=== PATIENT | male | born 1990 | race Caucasian/White ===

== ENCOUNTER 2019-08-24 08:55 | Inpatient (IN) | payer OTHER ==
[~2019-08-24] VITALS: Ht 177.8 cm; Wt 124.7 kg
[2019-08-24 08:57] VITALS: BP 195/111
[2019-08-24 09:34] LABS: ABSOLUTE BASOPHILS 0.1 thou/uL (0.0-0.2); ABSOLUTE EOSINOPHILS 0.2 thou/uL (0.0-0.7); ABSOLUTE LYMPHOCYTES 1.1 thou/uL (0.8-5.3); ABSOLUTE MONOCYTES 1.3 thou/uL (0.0-1.2); ABSOLUTE NEUTROPHILS 11.8 thou/uL (1.6-8.1); BASOPHILS 0.3 %; EOSINOPHILS 1.6 %; HEMATOCRIT 45.7 % (42.0-52.0); HEMOGLOBIN 15.8 gm/dL (14.0-18.0); LYMPHOCYTES 7.4 %; MCH 29.9 pg (26.0-34.0); MCHC 34.6 g/dL (28.0-37.0); MCV 86.6 fL (80.0-100.0); MONOCYTES 9.1 %; MPV 9.8 fl. (7.2-11.1); NUCLEATED RBCS 0 /100WBC; PLATELET COUNT* 263 thou/uL (150-400); POLYS 81.6 %; RBC 5.28 mil/uL (4.50-6.00); RDW-CV 13.8 % (10.5-14.5); WBC 14.5 thou/uL (4.0-11.0)
[2019-08-24 09:42] LABS: CALCIUM 9.2 mg/dL (8.5-10.1); CREATININE 0.9 mg/dL (0.6-1.3); POTASSIUM 3.6 mmol/L (3.5-5.1)
[2019-08-24 09:46] LABS: ALBUMIN 3.6 g/dL (3.4-5.0); TOTAL BILIRUBIN 2.5 mg/dL (<0.1-1.0); TOTAL PROTEIN 7.8 g/dL (6.4-8.2)
[2019-08-24 09:52] LABS: PROTIME 10.1 Seconds (9.20-11.50)
--- NOTE | 2019-08-24 10:43 | NUR ---
MARICA NOTIFIED UPON PT RETURN FROM CT. PT CONNECTED TO MONITOR AND O2
[2019-08-24 11:25] LABS: AMYLASE 822 U/L (25-115)
[2019-08-24 11:33] LABS: URINE BLOOD NEGATIVE (Negative); URINE CLARITY CLEAR; URINE COLOR YELLOW; URINE GLUCOSE-RANDOM NEGATIVE (Negative); URINE KETONES NEGATIVE (Negative); URINE LEUKOCYTES-REFLEX NEGATIVE (Negative); URINE NITRITE-REFLEX NEGATIVE (Negative); URINE PROTEIN NEGATIVE (Negative); URINE UROBILINOGEN 0.2 E.U./dl (0.2-1.0)
[2019-08-24 11:34] LABS: LIPASE 14097 U/L (73-393)
[2019-08-24 11:35] LABS: ICTOTEST (BILI CONFIRMATORY) Positive (Negative); URINE BILIRUBIN 1+ (Negative)
[2019-08-24 11:41] LABS: AMP/METHAMP POSITIVE (Negative); BARBITURATES Negative (Negative); BENZODIAZEPINES Negative (Negative); COCAINE Negative (Negative); METHADONE Negative (Negative); OPIATES POSITIVE (Negative); PCP Negative (Negative); THC Negative (Negative)
--- NOTE | 2019-08-24 12:04 | NUR ---
REPORT GIVEN TO KULDIP VAZQUEZ. KULDIP VAZQUEZ TO ASSUME PT CARE INPATIENT NURSE.
[2019-08-24 12:12] VITALS: BP 145/88
[2019-08-24 16:00] VITALS: BP 146/87
--- NOTE | 2019-08-24 16:16 | EKG ---
[place] [address] ELECTROCARDIOGRAM REPORT Name: TRUJILLORYAN II Room: [address] ADM IN M.R.#: [id number] Admission: 08/24/19 Attend Phys: Maximo Real Discharge: Date of : 89 Report #: [id number] THIS REPORT FOR: //name// 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
--- NOTE | 2019-08-24 19:50 | NUR ---
I ASSUMED CARE OF THE PATIENT AN ADMISSION AT 1220. HE IS ALERT AND ORIENTED X4 AND IS UP AD OSIEL. BED IS IN THE LOW LOCKED POSITION AND CALL LIGHT IS IN REACH. PATIENT NEEDS ARE MET AND PAIN IS MANAGED WITH PRN MEDS. HOURLY ROUNDING IS COMPLETED WELL ADMISSION. PATIENT IS INTERESTED IN CASE MANAGAMENT HELPING TO SET UP A DPOA. WILL CONTINUE TO MONITOR.
[2019-08-24 21:00] VITALS: BP 141/60
[2019-08-25 02:10] LABS: HEPATITIS B SURFACE AG Negative (Negative)
[2019-08-25 04:06] LABS: ABSOLUTE EOSINOPHILS 0.3 thou/uL (0.0-0.7); ABSOLUTE LYMPHOCYTES 1.1 thou/uL (0.8-5.3); ABSOLUTE MONOCYTES 0.9 thou/uL (0.0-1.2); ABSOLUTE NEUTROPHILS 7.3 thou/uL (1.6-8.1); BASOPHILS 0.1 %; EOSINOPHILS 3.3 %; HEMATOCRIT 41.7 % (42.0-52.0); HEMOGLOBIN 14.2 gm/dL (14.0-18.0); LYMPHOCYTES 11.5 %; MCHC 34.1 g/dL (28.0-37.0); MCV 88.1 fL (80.0-100.0); MONOCYTES 9.4 %; MPV 10.7 fl. (7.2-11.1); NUCLEATED RBCS 0 /100WBC; PLATELET COUNT* 222 thou/uL (150-400); POLYS 75.7 %; RBC 4.74 mil/uL (4.50-6.00); RDW-CV 13.7 % (10.5-14.5); WBC 9.7 thou/uL (4.0-11.0)
[2019-08-25 04:25] LABS: DIRECT BILIRUBIN 3.7 mg/dL (<0.1-0.3); MAGNESIUM 2.1 mg/dL (1.8-2.4); PHOSPHORUS* 3.4 mg/dL (2.5-4.9); POTASSIUM 3.7 mmol/L (3.5-5.1)
[2019-08-25 04:46] LABS: ALBUMIN 2.8 g/dL (3.4-5.0); CALCIUM 8.1 mg/dL (8.5-10.1); CREATININE 0.8 mg/dL (0.6-1.3); TOTAL BILIRUBIN 4.3 mg/dL (<0.1-1.0); TOTAL PROTEIN 5.6 g/dL (6.4-8.2)
--- NOTE | 2019-08-25 05:44 | NUR ---
PATIENT SLEPT MOST OF THE NIGHT. IV FLUIDS CONTINUE TO INFUSE PER ORDER. PATIENT WAS GIVEN PAIN MEDICINE ONCE THIS SHIFT. PATIENT REMAINS NPO. WILL CONTINUE TO MONITOR.
[2019-08-25 07:52] VITALS: BP 147/93
--- NOTE | 2019-08-25 14:42 | NUR ---
SW met with pt and pt parents to complete initial assessment, introduce self, and SW role. Pt alert, oriented, pleasant. Pt plans to be able to dc home with parents' support and pt wants to be able to recover from drug addiction, find job and "turn life around". SW provide pt with community resource list and discussed importance of support in pt recovery as well. Pt does not anticipate any dc needs at this time. SW to continue to follow.
[2019-08-25 15:54] VITALS: BP 129/71
--- NOTE | 2019-08-25 16:50 | NUR ---
ASSESSMENT COMPLETE. PT IS ALERT AND ORIENTED X4. PT GIVEN PRN PAIN MEDICATION NEEDED. PT HAS SURGERY TOMORROW, CLEAR LIQUIDS UNTIL MIDNIGHT THEN NPO. PT TOLERATING WITHOUT N/V OR WORSENING PAIN. PT IS UP AD OSIEL. PT HAD SHOWER THIS AFTERNOON. NEW IV PLACED IN LEFT FA, NS AT 150. IV ABX GIVEN SCHEDULED. PT HAS NO OTHER CONCERNS AT THIS TIME. SEE ASSESSMENT AND VITALS FOR OTHER DETAILS. CALL LIGHT WITHIN REACH, WILL CONTINUE PLAN OF CARE
[2019-08-25 20:02] VITALS: BP 163/96
--- NOTE | 2019-08-26 04:32 | NUR ---
ASSUMED PATIENT CARE AT 1900. PATIENT ALERT AND ORIENTED TIMES FOUR. VERBALIZED UNDERSTANDING OF NPO STATUS AT 0000 AND THAT HE WAS GOING TO HAVE SURGERY SOMETIME ON 08/26/19. COMPLAINTS OF PAIN, CONTROLLED WITH IV PAIN MEDICATION. NO QUESTIONS OR CONCERNS AT THIS TIME. RN ASSESSMNET AND HOURLY ROUNDING COMPLETED CHARTED
[2019-08-26 04:39] LABS: HEMATOCRIT 38.2 % (42.0-52.0); MCH 29.9 pg (26.0-34.0); MCHC 34.2 g/dL (28.0-37.0); MCV 87.5 fL (80.0-100.0); MPV 9.5 fl. (7.2-11.1); RBC 4.36 mil/uL (4.50-6.00); RDW-CV 13.9 % (10.5-14.5)
[2019-08-26 05:06] LABS: ALBUMIN 2.4 g/dL (3.4-5.0); CALCIUM 8.2 mg/dL (8.5-10.1); CREATININE 0.7 mg/dL (0.6-1.3); PHOSPHORUS* 2.5 mg/dL (2.5-4.9); POTASSIUM 3.8 mmol/L (3.5-5.1); TOTAL BILIRUBIN 1.9 mg/dL (<0.1-1.0); TOTAL PROTEIN 5.5 g/dL (6.4-8.2)
[2019-08-26 07:40] VITALS: BP 128/68
[2019-08-26 08:28] VITALS: BP 128/68
[2019-08-26 09:23] LABS: CHOLESTEROL 156 mg/dL (<200); HDL CHOLESTEROL 12 mg/dL (>40); LDL CHOLESTEROL 129 mg/dL (<100); TRIGLYCERIDE 76 mg/dL (<150); VLDL 15 mg/dL (<40)
[2019-08-26 09:24] LABS: SERUM ASSESSMENT Clear
[2019-08-26 13:50] VITALS: BP 173/81
--- NOTE | 2019-08-26 13:57 | OP ---
[address] [address] OPERATIVE REPORT Name: RONNIERYANMarco MIN II Room: [address] IN ..#: [id number] Admission: 08/24/19 Attend Phys: Maximo Real Discharge: Date of : 89 Report #: [id number] THIS REPORT FOR: //name// CC: RIVERA physician/PCP Maximo Hillman DATE OF SERVICE: 08/26/2019 PREOPERATIVE DIAGNOSES: Acute cholecystitis, cholelithiasis, and elevated liver enzymes. POSTOPERATIVE DIAGNOSES: Acute cholecystitis, cholelithiasis, and elevated liver enzymes. FINDINGS: Hugely distended and thick walled gallbladder with large stones. IOC was negative. SURGEON: Gretchen Myers DO. CO-SURGEON: Pee Wright, PGY5. BLASTING CLAY MINER: MS Leigh3. PROCEDURE PERFORMED: Laparoscopic cholecystectomy with intraoperative cholangiogram and surgeon interpretation of images. ANESTHESIA: General endotracheal and local. ESTIMATED BLOOD LOSS: 30 mL. DRAINS: None. SPECIMENS: Gallbladder. COMPLICATIONS: None. CONDITION: Stable. DISPOSITION: PACU to the floor. HISTORY OF PRESENT ILLNESS: The patient is a 28-year-old male who presented to the ER with complaint of abdominal pain. He was found to have an elevated white count and elevated liver enzymes and ultrasound was positive for acute cholecystitis with cholelithiasis. He was admitted to the floor with IV antibiotics and made n.p.o. MRCP was completed with no findings of any obstruction in the common bile duct. His LFTs did improve somewhat. He was [facility] [address] [place] [address] OPERATIVE REPORT Name: RYAN TRUJILLO JIMENEZ Room: [address] IN [facility].#: [id number] Admission: 08/24/19 Attend Phys: Maximo Real Discharge: Date of : 89 Report #: [id number] then consented for laparoscopic cholecystectomy with intraoperative cholangiogram. Risks discussed included bleeding; infection; pain; scar formation; injury to bowel, liver, and bile duct; hernia at the incision sites; need for an open procedure; and risks of general anesthesia. The patient understood these risks and elected to proceed. DESCRIPTION OF PROCEDURE: The patient was brought to the operating room. He was laid supine on the operating room table. SCDs were placed on bilateral lower extremities. The patient was already on Zosyn in the perioperative period. General endotracheal anesthesia was induced by Anesthesia without difficulty. Abdomen was prepped and draped in standard sterile fashion. Timeout was performed to verify the patient and procedure. 10 mL of 0.5% Marcaine were injected in the infraumbilical area. Incision was made with #11 blade. Cautery was used for hemostasis. S retractors were used to visualize the fascia. Fascia was grasped and elevated between 2 Kochers. Fascia was incised using cautery. Peritoneum was bluntly entered using a Ena clamp. Finger was introduced into the abdomen to assure that there were no rosy-incisional adhesions and none were identified. Two stitches of 0 Vicryl placed on the fascia. Perry trocar was introduced and secured with 0 Vicryl stitches. Abdomen was insufflated. The patient was placed head up and tilted left side down. Camera was introduced and a brief anterior abdominal exploration was undertaken with findings of a hugely distended gallbladder which was completely unrolled in adhesions. Three 5 mm trocars were introduced, 1 in the subxiphoid area and 2 in the right upper quadrant. The omental adhesions were gently teased down using the suction cooperative manager until the entirety of the gallbladder could be visualized. Gallbladder was hugely distended. Aspiration needle was introduced, but no bile was able to be aspirated. Cautery was then used to incise the peritoneum overlying the triangle of Calot. Cystic duct was then identified. It was circumferentially dissected free using a [place] dissector. Artery was identified just posterior. It was also circumferentially dissected free using a [place] dissector. Anaya clamp was then brought onto the field and was placed across the neck of the gallbladder. Self-penetrating catheter was introduced without difficulty. We had excellent flush and pulled bile through the cystic duct. The patient was returned to supine. C-arm was brought onto the field and cholangiogram was performed for 40 seconds with excellent flow of contrast into the cystic duct, bile duct, and hepatic radicals. Contrast was seen freely and to promptly flow into the duodenum. There was no sign of any stones or obstruction. Anaya clamp and catheter were then removed. Cystic duct was then triply clipped and ligated. Cystic Artery was doubly clipped and ligated. Gallbladder was then removed from the liver bed with some difficulty due to an acute inflammatory plane. One posterior artery was identified and was clipped. Gallbladder was then placed within an EndoCatch bag. Liver bed was inspected. Hemostasis was assured. Right upper quadrant was copiously irrigated until clear. Clips were inspected. They appeared to be intact. There was no bleeding or leakage noted from the area of the clips. Trocars were then removed under direct visualization. There was no bleeding [address] [address] OPERATIVE REPORT Name: RYAN TRUJILLO II Room: [address] IN [facility]#: [id number] Admission: 08/24/19 Attend Phys: Maximo azul [place] Discharge: Date of : 89 Report #: [id number] noted from the peritoneum. Abdomen was then completely desufflated. Perry trocar was removed, and EndoCatch bag was removed after extending the fascial incision due to the excessive size of the gallbladder. Specimen was handed off for permanent pathology. Kochers were placed on the fascia of our infraumbilical port. Previously placed 0 Vicryl stitches were removed and a #0 Vicryl stitch was placed in [id number]-rj-[id number] fashion with excellent approximation of the fascia. Additional 10 mL of 0.5% Marcaine were injected in the fascia. This wound was closed in a layered fashion using deep and superficial stitches of 3-0 Vicryl in inverted interrupted fashion. All skin wounds were closed with 4-0 Monocryl. A total of 30 mL of 0.5% Marcaine were used to anesthetize the wounds. Wounds were then cleansed and covered with Mastisol, Steri-Strips, 4 x 4's, and Tegaderm. The patient was then allowed to awake from anesthesia, was extubated, and transported to the recovery room with no further difficulties. Counts were correct x 2 at the conclusion of the case. <ELECTRONICALLY SIGNED> By: Gretchen Myers, 08/26/19 1357 1241 [id number] Myers DO /aneta
--- NOTE | 2019-08-26 17:21 | NUR ---
PATIENT HAD LAP CHOLEY THIS AM WITH DR. LOPEZ. PATIENT C/O ABD PAIN AFTER SURGERY. PRN OXY IR AND MORPHINE GIVEN ORDERED FOR PAIN. IVF AND SCHED ABX INFUSED ORDERED. PATIENT SITTING UP ON SIDE OF BED. VOIDING LARGE AMOUNTS OF URINE PER URINAL. FAMILY AT BEDSIDE. OK PER DR. LOPEZ TO DC THIS EVENING, PATIENT STATED HE WANTED TO STAY ANOTHER NIGHT. DRESSINGS TO ABD X 4 INTACT.
[2019-08-26 19:00] VITALS: BP 171/90
[2019-08-26 19:30] VITALS: BP 189/93
[2019-08-27] VITALS: BP 178/85
[2019-08-27 03:46] VITALS: BP 163/94
[2019-08-27 04:34] LABS: HEMATOCRIT 37.4 % (42.0-52.0); HEMOGLOBIN 12.6 gm/dL (14.0-18.0); MCH 29.3 pg (26.0-34.0); MCHC 33.7 g/dL (28.0-37.0); MCV 87.1 fL (80.0-100.0); MPV 9.4 fl. (7.2-11.1); RBC 4.3 mil/uL (4.50-6.00); RDW-CV 13.9 % (10.5-14.5); WBC 15.3 thou/uL (4.0-11.0)
[2019-08-27 04:48] LABS: ALBUMIN 2.6 g/dL (3.4-5.0); CALCIUM 8.2 mg/dL (8.5-10.1); CREATININE 0.7 mg/dL (0.6-1.3); POTASSIUM 3.7 mmol/L (3.5-5.1); TOTAL BILIRUBIN 1.1 mg/dL (<0.1-1.0); TOTAL PROTEIN 5.9 g/dL (6.4-8.2)
--- NOTE | 2019-08-27 05:58 | NUR ---
PT ALERT AND ORIENTED. BP HIGH. HYDRALAZINE GIVEN TWICE THIS SHIFT. ASSESSMENT DOCUMENTED. PAIN MEDS GIVEN MULTIPLE TIMES THIS SHIFT. MORPHINE GIVEN ONLY ONCE. THE REST WAS PO PAIN MEDS. 4 LAP SITES COVERED WITH TEGADERM C/D/I. PARENTS AT BEDSIDE THROUGH SHIFT. CAPNO IN PLACE. IV ABX INFUSED ORDERED. LFA IV WITH NS @ 150. PT DOES NOT EERCISE PATIENCE WHEN HE CALLS OUT. HE CALLS OUT MULTIPLE TIMES IN LESS THAN 5 MINS FOR THE SAME REASON. ANTICIPATED DC TO HOME TODAY. CALL LIGHT WITHIN REACH. HOURLY ROUNDINGS MADE. FALL PRECAUTION IN PLACE. WILL CONTINUE TO MONITOR.
[2019-08-27 08:00] VITALS: BP 159/87
[2019-08-27] MEDS ORDERED: HYDROCHLOROTHIA25 M1 PO (09:15)
[2019-08-27] MEDS ORDERED: COLACE 100 MG100 MG PO (09:15)
[2019-08-27] MEDS ORDERED: OXYCODONE HCL 55 MG PO (09:15)
[2019-08-27 10:21] VITALS: BP 159/87
[2019-08-27 10:30] VITALS: BP 159/87
--- NOTE | 2019-08-27 11:08 | NUR ---
ASSUMED PT CARE AT 0800. ASSESSMENT COMPLETED CHARTED. ABLE TO MAKE NEEDS KNOWN. UP AD OSIEL IN ROOM. PAIN NOTED IN ABDOMEN OF 06/07, COULDNT GIVE PAIN MEDICATION YET. PT TOOK SHOWER WHICH HELPED. DISCHARGE APPROVED FROM DOCTORS AND DISCHARGE PAPERWORK GIVEN TO PATIENT, SCRIPTS AND INFO GIVEN, IV FLUIDS STOPPED AND IV REMOVED. PATIENT WALKED TO CAR AT 1105 WITH NURSING STAFF. TOOK ALL BELONGINGS WITH HIM. NO QUESTIONS, COMMENTS, OR CONSERNS NOTED.
--- NOTE | 2019-08-30 14:06 | PATH ---
[address] [address] PATHOLOGY RPT PROCEDURE Name: COLE DIOP MECHELLE GAONA Room: [address] IN ..#: [id number] Admission: 08/24/19 Date of : [birth year] Discharge: 08/27/19 Report #: [id number] Path Case #: [id number] [facility] Accession Number: [id number] . 01 Material submitted: . gallbladder - GALLBLADDER . 01 Clinical history: . Acute cholecystitis, cholethithiasis, and elevated liver enzynes . 02 Diagnosis: Gallbladder: - Chronic and severe acute, ulcerative and hemorrhagic cholecystitis with associated epithelial atypia, mural fibrosis and serositis, cholelithiasis and benign and hyperplastic sentinel lymph node. (PA:brittany; 08/29/2019) MBMika 08/29/2019 1219 Local . 02 Electronically signed: . Ramírez Lozano MD, Pathologist NPI- [id number] . 01 Gross description: . Received in an unidentified cloudy brown fluid labeled "Cole Diop II, gallbladder," is an intact gallbladder measuring 8.2 x 4.1 x 3.3 cm in greatest dimensions. The serosal surface is smooth to shaggy and parekh-rivera to extensively hemorrhagic in appearance, partially covered in light rivera possible adhesions. Opening the specimen reveals a shaggy, dark brown to extensively hemorrhagic mucosa measuring 0.1 cm in thickness, with a gallbladder wall thickness of up to 0.9 cm. Sectioning near the infundibulum reveals a rivera-brown possible lymph node measuring 1.5 x 0.8 x 0.6 cm. A segment of loosely attached, light green to hemorrhagic possible mucosa is noted on the mucosal aspect, measuring 3.3 x 1.4 x 1.0 cm. No discrete polyps or nodules are noted grossly. A single calculus is present within the specimen that is dark brown-black and granular in appearance, measuring 1.4 cm maximum dimension. Environmental Compliance Engineer sections of the infundibulum, body and fundus are submitted in cassettes A1 and A2, to representatively include the possible partially detached mucosa. The possible lymph node is serially sectioned and submitted entirely in cassette A3. (DAC; 08/28/2019) XDC/XDC 08/29/2019 121 Local . 02 Pathologist provided ICD-10: K80.12 . 02 CPT . 114[address] [place] [address] PATHOLOGY RPT PROCEDURE Name: COLE DIOP II Room: [address] IN [facility].#: [id number] Admission: 08/24/19 Date of : 89 Discharge: 08/27/19 Report #: [id number] Path Case #: [id number] Specimen Comment: A courtesy copy of this report has been sent to Specimen Comment: [phone], . Specimen Comment: Report sent to / DR THOMAS Specimen Comment: Report sent to Specimen Comment: A duplicate report has been generated due to demographic updates. Performed at: [address] [facility] [address], [place], [place] [id number] MD Mike Alanis MD Phone: [phone] Performed at: [address] [facility] [address] [place], [place] [id number] MD Ramírez Lozano MD Phone: [phone]
== END 2019-08-27 11:05 | disposition home or self-care (01) | DRG 853 ==
LOC: M.ERS 08:55 → M.3W 11:22 → M.TBA-ER 11:22 → M.3W 12:26 → M.ORTHSURG 08-26 16:56
PROVIDERS: Personal Emergency Response Attendant; Surgery; ADMIT Family Medicine
PROC: 0FT44ZZ Resection of Gallbladder, Percutaneous Endoscopic Approach (ICD-10-PCS; principal; 2019-08-26)
PROC: BF131ZZ Fluoroscopy of Gallbladder and Bile Ducts using Low Osmolar Contrast (ICD-10-PCS; 2019-08-26)
DX: A41.9 Sepsis, unspecified organism (principal); K85.90 Acute pancreatitis without necrosis or infection, unspecified; K80.00 Calculus of gallbladder with acute cholecystitis without obstruction; E87.1 Hypo-osmolality and hyponatremia; E66.01 Morbid (severe) obesity due to excess calories; I10 Essential (primary) hypertension; F15.10 Other stimulant abuse, uncomplicated; F17.210 Nicotine dependence, cigarettes, uncomplicated; K75.9 Inflammatory liver disease, unspecified; R73.9 Hyperglycemia, unspecified; R74.0 Nonspecific elevation of levels of transaminase and lactic acid dehydrogenase [LDH]; E80.6 Other disorders of bilirubin metabolism; E78.5 Hyperlipidemia, unspecified; E78.00 Pure hypercholesterolemia, unspecified; Z68.39 Body mass index [BMI] 39.0-39.9, adult; Z82.49 Family history of ischemic heart disease and other diseases of the circulatory system; Z83.3 Family history of diabetes mellitus; Z23 Encounter for immunization